=== PATIENT | male | born 1960 | race Hispanic/Latino ===

== ENCOUNTER 2018-03-24 19:24 | Emergency (ER) | payer BC ==
--- NOTE | 2018-03-24 20:25 | ED PDOC ---
HPI: General Adult Time Seen by Provider: 03/24/18 20:09 Chief Complaint (Nursing): Dizziness/Lightheaded Chief Complaint (Provider): dizziness History Per: Patient History/Exam Limitations: no limitations Onset/Duration Of Symptoms: Hrs (1.5) Current Symptoms Are (Timing): Gone Now Additional Complaint(s): 57 y/o male presents for evaluation of dizziness x 1.5 hours ago. Patient states he was sitting on the couch when he suddenly felt light-headed, and then felt the room spinning around him. Patient states symptoms came and went approximately 4 times since then, with associated one episode of vomiting. Denies fever, headache, extremity numbness/weakness, vision changes, chest pain , shortness of breath, palpitations, abdominal pain. Patient reports feeling better at this time. Past Medical History Reviewed: Historical Data, Nursing Documentation, Vital Signs Vital Signs: Last Vital Signs Temp 98.3 F 03/24/18 22:12 Pulse 91 H 03/24/18 22:12 Resp 16 03/24/18 22:12 BP 153/90 H 03/24/18 22:12 Pulse Ox 99 03/24/18 22:12 - Medical History PMH: GERD, HTN, Hypercholesterolemia - Surgical History Surgical History: No Surg Hx - Family History Family History: States: No Known Family Hx - Living Arrangements Living Arrangements: With Family - Social History Current smoker - smoking cessation education provided: No Alcohol: Social Drugs: Denies - Home Medications Home Medications: Ambulatory Orders Medication Instructions Recorded Meclizine [Meclizine*] 25 mg PO TID PRN #21 tab 03/24/18 - Allergies Allergies/Adverse Reactions: Allergies Allergy/AdvReac Type Severity Reaction Status Date / Time No Known Allergies Allergy Verified 03/24/18 19:33 Review of Systems ROS Statement: Except As Marked, All Systems Reviewed And Found Negative Gastrointestinal: Positive for: Nausea, Vomiting Neurological: Positive for: Dizziness Physical Exam - Reviewed Nursing Documentation Reviewed: Yes Vital Signs Reviewed: Yes - Physical Exam Appears: Positive for: Well, Non-toxic, No Acute Distress Head Exam: Positive for: ATRAUMATIC, NORMAL INSPECTION, NORMOCEPHALIC Skin: Positive for: Normal Color Eye Exam: Positive for: Normal appearance, EOMI, PERRL, Nystagmus (horizontal, b /l) Cardiovascular/Chest: Positive for: Regular Rate, Rhythm Respiratory: Positive for: Normal Breath Sounds Gastrointestinal/Abdominal: Positive for: Normal Exam Back: Positive for: Normal Inspection Extremity: Positive for: Normal ROM Neurologic/Psych: Positive for: Alert, Oriented (x3) - Laboratory Results Result Diagrams: 03/24/18 20:45 03/24/18 20:45 - ECG ECG: Positive for: Viewed By Me (reviewed by ED attending) ECG Rhythm: Positive for: Sinus Rhythm O2 Sat by Pulse Oximetry: 96 - Progress ED Course And Treament: labs, ekg, CT head, orthostatics EXAM: CT Head Without Intravenous Contrast CLINICAL HISTORY: The patient is a 57 years male; Signs and symptoms; Dizziness 03/24/2018 8:21 PM TECHNIQUE: Axial computed tomography images of the head/brain without intravenous contrast. All CT scans at this facility use at least one of these dose optimization techniques: automated exposure control; mA and/or kV adjustment per patient size (includes targeted exams where dose is matched to clinical indication); or iterative reconstruction. Coronal and sagittal reformatted images were created and reviewed. COMPARISON: No relevant prior studies available. FINDINGS: Brain: There is mild diffuse cerebral atrophy present, consistent with this patient's age. Areas of decreased attenuation noted within the periventricular and subcortical white matter likely related to chronic microangiopathic ischemic changes given the patient's stated age. No hemorrhage. Ventricles: Unremarkable. No ventriculomegaly. Bones/joints: Unremarkable. No acute fracture. Soft tissues: Unremarkable. Sinuses: Unremarkable as visualized. No acute sinusitis. Mastoid air cells: Unremarkable as visualized. No mastoid effusion. IMPRESSION: No evidence of acute intracranial hemorrhage. On re-eval, patient resting comfortably; states no symptoms since arrival to exam room. Tolerated PO. Vitals stable Patient educated on findings, given Meclizine and Potassium PO in ED Rx Meclizine provided Advised follow up PMD/cardiology Return precautions given Disposition - Clinical Impression Clinical Impression: Dizziness - Patient ED Disposition Is Patient to be Admitted: No Counseled Patient/Family Regarding: Studies Performed, Diagnosis, Need For Followup, Rx Given - Disposition Disposition: Routine/Home Disposition Time: 22:04 Condition: IMPROVED Prescriptions: Meclizine [Meclizine*] 25 mg PO TID PRN #21 tab PRN Reason: Dizziness Instructions: Vertigo (a Type of Dizziness) Forms: [employer] ([place])
[2018-03-24 21:00] LABS: BASO % 0.6 % (0.0-2.0); EOS # 0.1 K/uL (0.0-0.7); EOS % 1.2 % (0.0-4.0); HEMOGLOBIN 15.9 g/dL (12.0-18.0); LYMPH # 3.5 K/uL (1.0-4.3); MEAN CELL VOLUME 94.5 fl (80.0-94.0); MEAN CORPUSCULAR HEMOGLOBIN 32.2 pg (27.0-31.0); MEAN PLATELET VOLUME 7.9 fl (7.2-11.7); MONO # 0.6 K/uL (0.0-0.8); MONO % 7.8 % (0.0-10.0); NEUT % 48.4 % (50.0-75.0); NRBC % 0.1 % (0.0-0.0); RBC 4.95 Mil/uL (4.40-5.90); WHITE BLOOD COUNT 8.3 K/uL (4.8-10.8)
[2018-03-24 21:12] LABS: ALB/GLOB RATIO 1.5 (1.0-2.1); ALBUMIN 4.3 g/dL (3.5-5.0); ALT/SGPT 38 U/L (21-72); AST/SGOT 27 U/L (17-59); BLOOD UREA NITROGEN 14 mg/dl (9-20); GFR AFRICAN-AMERICAN > 60; GFR NON-AFRICAN AMERICAN > 60
[2018-03-24] MEDS ORDERED: Potassium Chloride 20 mEq ER Tab PO ONE ×2 (21:18→22:00)
[2018-03-24 22:13] VITALS: BP 153/90; PULSE 91; RESP 16; TEMP 98.3
--- NOTE | 2018-03-25 08:27 | CT ---
Date of service: 03/24/2018 PROCEDURE: CT HEAD WITHOUT CONTRAST. HISTORY: dizziness COMPARISON: None available. TECHNIQUE: Axial computed tomography images were obtained through the head/brain without intravenous contrast. Radiation dose: Total exam DLP = mGy-cm. This CT exam was performed using one or more of the following dose reduction techniques: Automated exposure control, adjustment of the mA and/or kV according to patient size, and/or use of iterative reconstruction technique. FINDINGS: HEMORRHAGE: No intracranial hemorrhage. BRAIN: No mass effect or edema. Minimal cerebral atrophy present. Few bilateral scattered and patchy subcortical deep white matter hypodensity is compatible with Chronic microvascular ischemic changes. VENTRICLES: Unremarkable. No hydrocephalus. CALVARIUM: Unremarkable. PARANASAL SINUSES: Unremarkable as visualized. No significant inflammatory changes. MASTOID AIR CELLS: Unremarkable as visualized. No inflammatory changes. OTHER FINDINGS: None. IMPRESSION: No hemorrhage or mass effect. Minimal cerebral atrophy and bilateral few scattered and patchy subcortical deep white matter chronic microvascular ischemic changes. Concordant results (preliminary interpretation) provided by [facility].
--- NOTE | 2018-03-25 13:27 | CARD ---
APPROVED REPORT Date of service: 03/24/2018 EKG Measurement Heart [id number] <Conclusion> Normal sinus rhythm Normal ECG
[2018-03-25 20:43] VITALS: O2SAT 96
== END 2018-03-24 22:12 | disposition home or self-care (01) ==
LOC: H.ER 19:24
DX: R42 Dizziness and giddiness (principal); E78.00 Pure hypercholesterolemia, unspecified; I10 Essential (primary) hypertension; K21.9 Gastro-esophageal reflux disease without esophagitis